=== PATIENT | female | born 1985 | race Hispanic/Latino ===

== ENCOUNTER 2021-09-22 22:49 | Emergency (ER) | payer OTHER ==
[~2021-09-22] VITALS: Ht 162.6 cm; Wt 113.4 kg
[~2021-09-22 22:49] MED LIST: CIPRO500 MG PO; ULTRAM 50MG50 MG PO
[2021-09-22] MEDS ORDERED: ACETAMINOPHEN 325 MG TAB PO STA (22:57)
[2021-09-22 23:45] LABS: CLARITY,URINE CLEAR (CLEAR); COLOR,URINE YELLOW (YELLOW); KETONES,URINE NEGATIVE (NEGATIVE); LEUKOCYTE ESTERASE ,URINE NEGATIVE (NEGATIVE); NITRITE,URINE NEGATIVE (NEGATIVE); PROTEIN,URINE DIPSTICK NEGATIVE (NEGATIVE); URINE UROBILINOGEN 0.2 mg/dL (0.2 - 1)
[2021-09-22 23:48] LABS: BACTERIA,URINE FEW /HPF; EPITHELIAL CELLS,URINE MODERATE /LPF
[2021-09-22] MEDS ORDERED: LEVOFLOXACIN 500 MG TAB PO STA (23:54)
[2021-09-23] MEDS ORDERED: ONDANSETRON HCL 4 MG ORAL DISINTEGRATING TAB PO STA (00:09)
[2021-09-23] MEDS ORDERED: ONDANSETRON HCL 4 MG ORAL DISINTEGRATING TAB ONE (00:22)
== END 2021-09-23 00:29 | disposition home or self-care (01) ==
LOC: ER 22:52
DX: R50.9 Fever, unspecified (principal); B34.9 Viral infection, unspecified
CPT/HCPCS: 81001; 99283; Q0162; U0002